=== PATIENT | male | born 1960 | race Caucasian/White ===

== ENCOUNTER 2021-12-14 06:10 | Day surgery (SDC) | payer OTHER ==
[2021-12-12 10:51] VITALS: BMI 28.2
[~2021-12-14 06:10] MED LIST: LACTATED RINGERS 1,000 ML IV SCH
[2021-12-14 06:40] VITALS: TEMP 98.1
[2021-12-14 06:52] LABS: Glucose,Whole Blood 134 mg/dL (75-99)
[2021-12-14] MEDS ORDERED: LIDOCAINE 1% INJ 10MG/ML (20 ML MDV) ONE (07:26)
[2021-12-14] MEDS ORDERED: PROPOFOL 10 MG/ML 20 ML VIAL IV ONE (07:26)
--- NOTE | 2021-12-14 07:44 | P.PCN ---
Date of Procedure: 12/14/21 Procedure(s) Performed: BRIEF HISTORY: Patient is a 61-year-old pleasant white male scheduled for an elective colonoscopy as a part of screening for colorectal neoplasia. His last colonoscopy was 10 years ago. PROCEDURE PERFORMED: Colonoscopy. PREOPERATIVE DIAGNOSIS: Screening for colon cancer. IV sedation per Anesthesia. PROCEDURE: After informed consent was obtained, the patient, was brought into the endoscopy unit. IV sedation was administered by Anesthesia under continuous monitoring. Digital rectal examination was normal. Initially the Olympus CF-160 flexible video colonoscope was then inserted in the rectum, gradually advanced into the cecum without any difficulty. Careful examination was performed as the scope was gradually being withdrawn. Ileocecal valve and the appendiceal orifice were visualized and appeared normal. Prep was excellent. Mucosa of the cecum, ascending colon, transverse colon, descending colon, sigmoid colon, and rectum appeared normal. Scattered sigmoid diverticulosis. Retroflexion was performed in the rectum and no lesions were seen. The patient tolerated the procedure well. IMPRESSION: Normal-appearing colon from rectum to cecum with no evidence of colorectal neoplasia . Scattered sigmoid diverticulosis. RECOMMENDATIONS: Findings of this examination were discussed with the patient as well as his family. He was advised to have a repeat screening colonoscopy in 10 years..
[2021-12-14 08:05] VITALS: BP 108/69; PULSE 71; RESP 18
== END 2021-12-14 08:21 | disposition home or self-care (01) ==
LOC: ORWHC2ENDO 06:10
PROVIDERS: ATTEND Internal Medicine Gastroenterology
DX: Z12.11 Encounter for screening for malignant neoplasm of colon (principal); K57.30 Diverticulosis of large intestine without perforation or abscess without bleeding; I10 Essential (primary) hypertension; F17.200 Nicotine dependence, unspecified, uncomplicated; E11.9 Type 2 diabetes mellitus without complications; K21.9 Gastro-esophageal reflux disease without esophagitis; Z79.84 Long term (current) use of oral hypoglycemic drugs; Z79.891 Long term (current) use of opiate analgesic; Z79.899 Other long term (current) drug therapy
CPT/HCPCS: J2001; J2704; G0121

== ENCOUNTER → 2023-02-10 | Outpatient (CLI) | payer OTHER ==
--- NOTE | 2023-02-10 21:47 | MR ---
EXAMINATION TYPE: MR cspine/lspine wo con DATE OF EXAM: 02/10/2023 9:38 PM CLINICAL INDICATION:Male, 63 years old with history of Cervical pain; lumbar pain; Low back and Neck pain COMPARISON: 03/23/2016 TECHNIQUE: Multi planar, multi sequence imaging was performed utilizing: T1-weighted, T2-weighted, a nd turbo inversion recovery imaging of the cervical and lumbar spine. MR contrast: IV Contrast: , None. FINDINGS: CERVICAL: Alignment: The cervical vertebral bodies have preserved heights. Straightening of the cervical alignm ent. Bones: Bone signal is within normal limits. Cord: The spinal cord is unremarkable with regards to their signal intensity and morphology. Discs: Multilevel disc desiccation is present. C2-C3: No significant disc pathology. The spinal canal is patent. No neural foraminal stenosis. C3-C4: A disc osteophyte complex is present with mild spinal canal stenosis. Bilateral facet and unc overtebral joint arthropathy are present with moderate left and mild right neural foraminal stenosis. C4-C5: A disc osteophyte complex is present with mild spinal canal stenosis. Bilateral facet and unc overtebral joint arthropathy are present with moderate bilateral neural foraminal stenosis. C5-C6: A disc osteophyte complex is present with moderate to severe spinal canal stenosis. Bilateral facet and uncovertebral joint arthropathy are present with moderate to severe bilateral neural josefina inal stenosis. C6-C7: No significant disc pathology. The spinal canal is patent. Bilateral facet and uncovertebral joint arthropathy are present with moderate mild left neural foraminal stenosis. C7-T1: No significant disc pathology. The spinal canal is patent. No neural foraminal stenosis. Other: None. LUMBAR: Alignment: The lumbar vertebral bodies have preserved heights and straightening of the alignment. Cord: The conus medullaris and the distal spinal cord appear unremarkable with regards to their signa l intensity and morphology. Bones/Discs: Spondylosis within the lumbar spine. 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 There is some bony edema and adjoining endplates of L3-L4 and L4-L5. No evidence for fr acture. T12-L1: No evidence of significant spinal canal stenosis or neural foraminal stenosis. L1-L2: No evidence of significant spinal canal stenosis or neural foraminal stenosis. L2-L3: No evidence of significant spinal canal stenosis or neural foraminal stenosis. L3-L4: Disc bulge and facet joint arthropathy result in mild spinal canal and moderate to severe righ t and moderate left bilateral neural foraminal stenosis. L4-L5: Disc bulge and facet joint arthropathy result in mild to moderate spinal canal and severe left and [id number] right bilateral neural foraminal stenosis. L5-S1: The disc is rounded posterior morphology without significant spinal canal stenosis. Facet join t arthropathy with severe bilateral neural foraminal stenosis. Other findings: Right renal cyst IMPRESSION: 1. Degeneration changes worse within the cervical spine at C5-C6 with moderate to severe spinal umang l and bilateral neural foraminal stenosis. 2. Degeneration changes throughout the lumbar spine worse at L3-L4 through L5-S1 with varying degree s of moderate and moderate to severe and severe neural foraminal stenosis as described above.
== END | disposition home or self-care (01) ==
LOC: RADMRIMAIN 18:40
PROVIDERS: ATTEND Nurse Practitioner Family
DX: M47.816 Spondylosis without myelopathy or radiculopathy, lumbar region (principal); M47.812 Spondylosis without myelopathy or radiculopathy, cervical region; M47.817 Spondylosis without myelopathy or radiculopathy, lumbosacral region; M99.73 Connective tissue and disc stenosis of intervertebral foramina of lumbar region
CPT/HCPCS: 72141; 72148

== ENCOUNTER → 2023-12-18 | Outpatient (CLI) | payer OTHER ==
[2023-12-18 13:57] VITALS: BP 142/72; PULSE 97; RESP 15; TEMP 98.4
--- NOTE | 2023-12-18 15:09 | P.PAINPG ---
PQRS Measure Charge Sheet Comment: HISTORY OF PRESENT ILLNESS: A 63 yr old male as a referral from the [facility] presents today w severe and chronic LBP > 1 yr secondary to DDD, spondylosis and facet arthropathy without myelopathy for evaluation. Pt states pain level is provoked at 7 /10 in intensity, constant, localized in the lower lumbar spine, predominantly axial, achy in character w occasional shooting pain towards the BLEs. Pain is provoked by standing/ sitting for periods > 20 min. Pain is alleviated by PT x 6 wks (shoulder) which he is currently in, heat, ice, medications ([place] 7.5/325mg #60, Bupropion patches), repositioning and rest . Oswestry axial pain score at 17. PMH: OA, Asthma, NIDDM II, HTN, Hyperlipidemia, Seasonal Allergies, GERD, MDD PSH: R shoulder Arthroscopy SH: Hx of tobacco use, Occasional ETOH use, Cannabis use FH: Non contributory All: See list Meds: See list REVIEW OF ORGAN SYSTEMS: CONSTITUTIONAL: No fevers or chills. No recent weight loss. NEUROLOGICAL: + numbness and tingling along the distal extremities. No seizure disorders or headaches. MUSCULOSKELETAL: + pain PSYCHIATRIC: Denies current depression or suicidal thoughts. Physical Examinations : Constitutional : Cooperative , not in acute distress . Neurologic : Cranial nerve II to XII intact. No focal neurological deficits. Psychiatric : alert & oriented x 3. Matching mood & appropriate affect. Judgment & insight intact. Musculoskeletal : Cervical Spine Motor strength in the deltoid and biceps: Normal right side. Normal Left side Motor strength biceps and the wrist extensors: Normal right side . Normal left side Motor strength in the triceps muscle: Normal right side. Normal left side Deep tendon reflexes: Normal at the biceps. Normal at Brachioradialis. Normal at triceps Vertebral body tenderness to deep palpation over Cervical facet loading test: positive bilaterally Spurling test: positive bilaterally Neck distraction test: positive bilaterally Oziel sign: positive bilaterally Lumbar spine Motor strength lower extremities ,thigh and legs 5/5 Right side , 5/5 Left side Deep tendon reflexes : Normal Knee Jerk. Normal Ankle Jerk Vertebral body tenderness over Hopkins Test positive BL L5-S1 Lumbar facet Loading Test: positive Right / positive Left Range of motion of the lumbar spine Flexion 30 degrees, extension 10 degrees Straight Leg Raise test: Left/ Right positive at < 35 degrees Luciano test: positive right / positive left. Severe tenderness over the Sacroiliac joint on the Right / Left sides Gaenslen test: positive bilaterally Seated flexion test: positive bilaterally. Sacral spine : Severe tenderness over the Sacroiliac joint: right side / left side Range of motion: Flexion of the lumbar spine <60 degrees Range of motion: Extension of the lumbar spine <20 degrees Gaenslen's Test positive Luciano test: positive right side / left side Thigh Thrust Test Sacral Thrust Test Imaging: MRI non contrast of the lumbar spine from 02/10/23 reviewed Assessment/ Plan : Lumbar DDD, Lumbar stenosis, Cervical DDD Recommendation of SATNAM L5-S1 #1. May need a series of injections for opitmal pain relief. Risks, benefits of procedure discussed and patient verbalized understanding. Admits to anti- coagulant use or medical history of diabetes. Protocol for discontinuation/ continuation of medications rosina procedure discussed. Minimal anesthesia provided, if clinically indicated, consisting of Versed and Fentanyl. All questions answered. I have spent greater than 30 minutes on patient care today. Dr Paniagua was available by phone for the evaluation of this patient. The time was used to review the medical records including relevant urine studies and Prescription history (MAPs), review of the available imaging, evaluation and examination of the patient, coordination of care with the medical staff and if applicable referring physicians, as well as creation of the medical record Home Medications: Ambulatory Orders Hydrocodone/Acetaminophen [Hydrocodone/Acetaminophen 7.5-325] 1 each PO Q6HR PRN 12/12/21 Nf-Alogliptin Dose Unk 1 tab PO HS 12/12/21 Nf-Amlodipine Dose Unk 1 tab PO DAILY 12/12/21 Nf-Metformin Dose Unk 1 tab PO BID 12/12/21 Omeprazole 40 mg PO DAILY 12/12/21 Controlled Substance Measures - Controlled Substance Measures Is patient prescribed a controlled substance at discharge?: No
== END ==
LOC: PNWHC3 12:38
PROVIDERS: ATTEND Specialist
DX: M51.36 Other intervertebral disc degeneration, lumbar region (principal); M48.061 Spinal stenosis, lumbar region without neurogenic claudication; M50.30 Other cervical disc degeneration, unspecified cervical region; Z87.891 Personal history of nicotine dependence
CPT/HCPCS: 99211

== ENCOUNTER 2023-12-25 06:07 | Day surgery (SDC) | payer OTHER ==
[2023-12-25 06:49] LABS: Glucose,Whole Blood 130 mg/dL (70-110)
[2023-12-25 07:07] VITALS: TEMP 98.9
[2023-12-25] MEDS ORDERED: IOPAMIDOL M200 10 ML VIAL ONE (07:08)
[2023-12-25] MEDS ORDERED: methylPREDNISolone ACETATE 40 MG/ML 1 ML VIAL ONE (07:08)
--- NOTE | 2023-12-25 07:13 | P.PCN ---
Date of Procedure: 12/25/23 Procedure(s) Performed: PREOPERATIVE DIAGNOSIS: 1- Lumbar Degenerative Disc Diseases 2-Lumbar spondylosis with Facet arthropathy without myelopathy. POSTOPERATIVE DIAGNOSIS: 1-lumbar degenerative disc disease. 2-lumbar spondylosis with facet arthropathy without myelopathy. PROCEDURE 1. Lumbar epidural steroid injection under fluoroscopic guidance at the L5-S1 level. (Fluoroscopy imaging was available in radiology department) 2. Lumbar epidurogram. ANESTHESIA: Lidocaine 1% 3 and then only. EBL: Minimal PROCEDURE INDICATION: The patient with low back pain and radiculitis symptoms unresponsive to conservative treatment. Fluoroscopy was used to optimize visualization of the needle placement and to maximize safety. PROCEDURE DESCRIPTION / TECHNIQUE: The patient was seen and identified in the preoperative area. Risks, benefits, complications including but not limited to infections ,bleeding ,allergic reaction to the medications ,nerve damage and not complete pain releife , and alternatives were discussed with the patient. The patient agreed to proceed with the procedure and signed the consent, and vital signs were stable. Patient was taken to the OR and time out was completed. The patient was placed in the prone position on procedure table and a pillow was placed under the a bdomen to reduce lumbar lordosis. The lumbosacral area was prepped and draped in the usual sterile fashion.ere closely monitored during the procedure. Vital signs was monitered during the entire procedure. Using anterior-posterior fluoroscopy, the L5-S1 interlaminar space was identified and the skin over this site was marked and then infiltrated with 1% lidocaine subcutaneously. Subsequently, a 20-gauge Tuohy epidural needle was inserted and advanced toward the epidural space using the ``Loss of resistance technique and guided by AP and lateral fluoroscopy. The correct needle position in the epidural space was verified with the injection of 2 mL of the water soluble contrast dye Isovue 200 contrast and observing an excellent epidurogram with the epidural spread of the dye, after negative aspiration for blood and CSF and in the absence of paresthesias. Again after negative aspiration, a 5 ml mixture containing 40 mg of Depo-medrol ( Preservetive Free ), and 2 ml of preservative free Normal Saline, and 2 ml of preservative free lidocaine 1% solution was injected and a washout of epidurogram was seen. Needle was withdrawn intact, skin was cleansed, and bandages were applied. COMPLICATIONS: None DISPOSITION / PLANS: The patient was placed in a supine position and transferred to the recovery area in a stable condition for observation. There was no evidence of lower extremity motor or sensory deficit after the procedure. Patient was discharged from the recovery room after meeting discharge criteria. Home discharge instructions were given to the patient by the staff. The patient was reexamined prior to discharge. The patient will schedule a follow up in the clinic in 2-4 weeks.
[2023-12-25 07:46] LABS: Glucose,Whole Blood 146 mg/dL (70-110)
[2023-12-25 07:50] VITALS: BP 117/73; PULSE 88; RESP 16
--- NOTE | 2023-12-25 09:07 | FL ---
EXAMINATION TYPE: FL guided pain mgmt statistic Intraoperative/procedural fluoroscopic services were provided. Total fluoroscopy time is 1.3 seconds with a total of 1 submitted images to PACS. Please se e the operative/procedural note for further details. DAP: [id number] mGym2
== END 2023-12-25 07:46 | disposition home or self-care (01) ==
LOC: ORPAIN 06:07
PROVIDERS: ATTEND Specialist
DX: M51.16 Intervertebral disc disorders with radiculopathy, lumbar region (principal); M47.26 Other spondylosis with radiculopathy, lumbar region; Z88.8 Allergy status to other drugs, medicaments and biological substances; Z79.1 Long term (current) use of non-steroidal anti-inflammatories (NSAID)
CPT/HCPCS: 62323; Q9966; J1010

== ENCOUNTER → 2024-01-15 | Outpatient (CLI) | payer OTHER ==
[2024-01-15 14:08] VITALS: BP 156/82; PULSE 96; RESP 16
--- NOTE | 2024-01-15 14:53 | P.PAINPG ---
PQRS Measure Charge Sheet Comment: HISTORY OF PRESENT ILLNESS: A 63 yr old male presents today w severe and chronic LBP > 1 yr secondary to DDD, spondylosis and facet arthropathy without myelopathy for evaluation s/p SATNAM L5-S1 #1. Pt states he experienced 100 % pain relief x 3 days s/p procedure. Pt states pain level is provoked at 7 /10 in intensity, constant, localized in the lower lumbar spine, predominantly axial, achy in character without shooting pain. Pain is provoked by standing/ sitting for periods > 20 min. Pain is alleviated by PT x 6 wks (shoulder) which he is currently in, heat, ice, medications, repositioning and rest . Oswestry axial pain score at 17. Interventional procedures include SATNAM L5-S1 x1 Medications include [place] 7.5/325mg #60, Bupropion patches, Cannabis use REVIEW OF ORGAN SYSTEMS: CONSTITUTIONAL: No fevers or chills. No recent weight loss. NEUROLOGICAL: + numbness and tingling along the distal extremities. No seizure disorders or headaches. MUSCULOSKELETAL: + pain PSYCHIATRIC: Denies current depression or suicidal thoughts. Physical Examinations : Constitutional : Cooperative , not in acute distress . Neurologic : Cranial nerve II to XII intact. No focal neurological deficits. Psychiatric : alert & oriented x 3. Matching mood & appropriate affect. Judgment & insight intact. Musculoskeletal : Cervical Spine Motor strength in the deltoid and biceps: Normal right side. Normal Left side Motor strength biceps and the wrist extensors: Normal right side . Normal left side Motor strength in the triceps muscle: Normal right side. Normal left side Deep tendon reflexes: Normal at the biceps. Normal at Brachioradialis. Normal at triceps Vertebral body tenderness to deep palpation over Cervical facet loading test: positive bilaterally Spurling test: positive bilaterally Neck distraction test: positive bilaterally Oziel sign: positive bilaterally Lumbar spine Motor strength lower extremities ,thigh and legs 5/5 Right side , 5/5 Left side Deep tendon reflexes : Normal Knee Jerk. Normal Ankle Jerk Vertebral body tenderness over Hopkins Test positive Lumbar facet Loading Test: positive Right / positive Left L4-L5, L5-S1 Range of motion of the lumbar spine Flexion 30 degrees, extension 10 degrees Straight Leg Raise test: Left/ Right positive at < 35 degrees Luciano test: positive right / positive left. Severe tenderness over the Sacroiliac joint on the Right / Left sides Gaenslen test: positive bilaterally Seated flexion test: positive bilaterally. Sacral spine : Severe tenderness over the Sacroiliac joint: right side / left side Range of motion: Flexion of the lumbar spine <60 degrees Range of motion: Extension of the lumbar spine <20 degrees Gaenslen's Test positive Luciano test: positive right side / left side Thigh Thrust Test Sacral Thrust Test Imaging: MRI non contrast of the lumbar spine from 02/10/23 reviewed Assessment/ Plan : Lumbar DDD, Lumbar stenosis, Cervical DDD Recommendation of BL MBB L3-L5 #1. May need a series of injections for optimal pain relief. Risks, benefits of procedure discussed and patient verbalized understanding. Admits to anti- coagulant use or medical history of diabetes. Protocol for discontinuation/ continuation of medications rosina procedure discussed. Minimal anesthesia including Fentanyl and Versed if clinically indicated. All questions answered. I have spent greater than 30 minutes on patient care today. Dr Paniagua was available by phone for the evaluation of this patient. The time was used to review the medical records including relevant urine studies and Prescription history (MAPs), review of the available imaging, evaluation and examination of the patient, coordination of care with the medical staff and if applicable referring physicians, as well as creation of the medical record PQRS Narrative: Hx Alcohol Use (MH) Yes Home Medications: Ambulatory Orders Hydrocodone/Acetaminophen [Hydrocodone/Acetaminophen 7.5-325] 1 each PO Q12HR PRN 12/12/21 Albuterol Inhaler [Ventolin Hfa Inhaler] 1 - 2 puff INHALATION Q6H PRN 12/24/23 Alogliptin Benzoate [Alogliptin] 25 mg PO DAILY 12/24/23 Atorvastatin [Lipitor] 20 mg PO DAILY 12/24/23 DULoxetine HCL [Cymbalta] 60 mg PO DAILY 12/24/23 Fluticasone Nasal [place] [Flonase Nasal [place]] 1 spray EA NOSTRIL DAILY 12/24/23 Ibuprofen [Motrin] 800 mg PO TID PRN 12/24/23 Nicotine Patch 1 patch TOPICAL DIRECTED 12/24/23 Omeprazole 20 mg PO DAILY 12/24/23 amLODIPine 10 mg PO DAILY 12/24/23 lisinopriL [Zestril] 5 mg PO DAILY 12/24/23 metFORMIN HCL [Glucophage] 1,000 mg PO BID 12/24/23 traZODone HCL 150 mg PO HS 12/24/23 Controlled Substance Measures - Controlled Substance Measures Is patient prescribed a controlled substance at discharge?: No
== END ==
LOC: PNWHC3 12:37
PROVIDERS: ATTEND Specialist
DX: M51.37 Other intervertebral disc degeneration, lumbosacral region (principal); M50.30 Other cervical disc degeneration, unspecified cervical region; M48.061 Spinal stenosis, lumbar region without neurogenic claudication; Z88.8 Allergy status to other drugs, medicaments and biological substances
CPT/HCPCS: 99211

== ENCOUNTER 2024-01-30 06:10 | Day surgery (SDC) | payer OTHER ==
[2024-01-28 15:05] VITALS: BMI 27.3
[2024-01-30 06:48] VITALS: TEMP 98.4
[2024-01-30] MEDS: IV FLUID CONTINUATION 1,000 ML IV ONE (06:58)
[2024-01-30] MEDS: LACTATED RINGERS 1,000 ML IV SCH (06:59)
[2024-01-30 07:02] LABS: Glucose,Whole Blood 115 mg/dL (70-110)
[2024-01-30] MEDS ORDERED: MIDAZOLAM 2 MG/2 ML VIAL ONE (07:51)
[2024-01-30] MEDS ORDERED: fentaNYL (PF) 50 MCG/ML 2 ML AMP ONE (07:51)
[2024-01-30] MEDS ORDERED: ROPIVACAINE 5MG/ML 20ML VIAL ONE (07:51)
--- NOTE | 2024-01-30 08:06 | P.PCN ---
Date of Procedure: 01/30/24 Procedure(s) Performed: PREOPERATIVE DIAGNOSIS : 1- Lumbar spondylosis with Facet Arthropathy with out myelopathy . 2- Lumber degenerative disc disease POSTOPERATIVE DIAGNOSIS: 1- Lumbar spondylosis with Facet Arthropathy without myelopathy . 2- Lumber degenerative disc disease PROCEDURE: Diagnostic bilateral L3 , L4 , and L5 medial branch block under fluoroscopy guidance(fluoroscopy images available in the radiology Department ) ( To target the facet joint between Bilateral L4-5 , and L5- S1 )# 1St ANESTHESIA: moderate sedation with intravenous Versed 2 mg and Fentanyl 100 mcg. (Sedation start 07:51 ,ended at 08:04 ) EBL: Minimal COMPLICATION: None PROCEDURE INDICATION: Chronic low back pain secondary to Facet arthropathy unresponsive to conservative treatment. PROCEDURE DESCRIPTION: the patient was seen and identified in the preop holding area , risks and benefits and possible complications of the procedure and alternative were discussed with the patient, and the patient agreed to proceed with the procedure and signed the consent and vital signs monitored during the procedure and fluoroscopy was used to maximize the benefit and accuracy of the needle placement, and sedation was given to decrease patient anxiety, patient was taken to the procedure room and placed in prone position vital signs monitored in the back prepped with chlorhexidine X3 then under strict sterile technique using a right oblique fluoroscopy ,the junction of the transverse process and the superior articulating process of the right L3 , L4 , and L5 vertebra which corresponding to the fluoroscopy image of the eye of the Jered dog on the block side for the medial branches and subsequently , after local infiltration of skin and subcu tissuies with Ropivacaine 0.5 % , one mL at each level ,then 22-gauge Quincke-type needles , 3 needle was used , each one of them placed at the junction of the base of the transverse process and the superior articular process at the appropriate level, and the needle was advanced until the periosteum contacted, needle placement confirmed with AP oblique and lateral view and after appropriate needle placement confirmed, and after negative aspiration for heme and CSF and there was no paresthesia 1-1/2 mL of Ropivacaine 0.5% , then half mL injected at each level after negative aspiration the needle subsequently removed and the same procedure repeated for the left side at left side at L3 , L4 and L5 levels. At the end of the procedure and the needles removed and a bandage applied after the skin was cleaned the cleaning solution patient taken to recovery room in stable condition and monitors in the recovery room for 20-30 minutes and discharged home in stable condition after discharge criteria met and patient will follow up with the pain clinic in 2-4 weeks
[2024-01-30] MEDS: IV FLUID CONTINUATION 400 ML IV ONE (08:11)
[2024-01-30 08:50] VITALS: BP 128/78; PULSE 87; RESP 18
--- NOTE | 2024-01-30 09:17 | FL ---
EXAMINATION TYPE: FL guided pain mgmt statistic Intraoperative/procedural fluoroscopic services were provided. Total fluoroscopy time is 13 point seconds with a total of 5 submitted images to PACS. Plea se see the operative/procedural note for further details. DAP: 0.0298 mGym2
== END 2024-01-30 08:51 | disposition home or self-care (01) ==
LOC: ORPAIN 06:10
PROVIDERS: ATTEND Specialist
DX: M47.816 Spondylosis without myelopathy or radiculopathy, lumbar region (principal); G89.29 Other chronic pain; M51.36 Other intervertebral disc degeneration, lumbar region; E11.9 Type 2 diabetes mellitus without complications; Z79.899 Other long term (current) drug therapy
CPT/HCPCS: 64493; 64494 ×2; J2250; J3010; J2795; 99152

== ENCOUNTER → 2024-03-04 | Outpatient (CLI) | payer OTHER ==
[2024-03-04 11:20] VITALS: BP 138/79; PULSE 100; RESP 16
--- NOTE | 2024-03-04 14:55 | P.PAINPG ---
PQRS Measure Charge Sheet Comment: HISTORY OF PRESENT ILLNESS: A 63 yr old male presents today w severe and chronic LBP > 1 yr secondary to DDD, spondylosis and facet arthropathy without myelopathy for evaluation s/p BL MBB L4-L5/ L5-S1 #1. Pt states he experienced 80 % pain relief x 4 hrs s/p procedure. Pt states pain level is provoked at 7 /10 in intensity, constant, localized in the lower lumbar spine, predominantly axial, achy in character without shooting pain. Pain is provoked by standing/ sitting for periods > 20 min. Pain is alleviated by PT x 6 wks (shoulder) which he is currently in, heat, ice, medications, repositioning and rest . Oswestry axial pain score at 17. Interventional procedures include SATNAM L5-S1 x1, BL MBB L4-L5/ L5-S1 x1 Medications include [place] 7.5/325mg #60, Bupropion patches, Cannabis use REVIEW OF ORGAN SYSTEMS: CONSTITUTIONAL: No fevers or chills. No recent weight loss. NEUROLOGICAL: + numbness and tingling along the distal extremities. No seizure disorders or headaches. MUSCULOSKELETAL: + pain PSYCHIATRIC: Denies current depression or suicidal thoughts. Physical Examinations : Constitutional : Cooperative , not in acute distress . Neurologic : Cranial nerve II to XII intact. No focal neurological deficits. Psychiatric : alert & oriented x 3. Matching mood & appropriate affect. Judgment & insight intact. Musculoskeletal : Cervical Spine Motor strength in the deltoid and biceps: Normal right side. Normal Left side Motor strength biceps and the wrist extensors: Normal right side . Normal left side Motor strength in the triceps muscle: Normal right side. Normal left side Deep tendon reflexes: Normal at the biceps. Normal at Brachioradialis. Normal at triceps Vertebral body tenderness to deep palpation over Cervical facet loading test: positive bilaterally Spurling test: positive bilaterally Neck distraction test: positive bilaterally Oziel sign: positive bilaterally Lumbar spine Motor strength lower extremities ,thigh and legs 5/5 Right side , 5/5 Left side Deep tendon reflexes : Normal Knee Jerk. Normal Ankle Jerk Vertebral body tenderness over Hopkins Test positive Lumbar facet Loading Test: positive Right / positive Left L4-L5, L5-S1 Range of motion of the lumbar spine Flexion 30 degrees, extension 10 degrees Straight Leg Raise test: Left/ Right positive at < 35 degrees Luciano test: positive right / positive left. Severe tenderness over the Sacroiliac joint on the Right / Left sides Gaenslen test: positive bilaterally Seated flexion test: positive bilaterally. Sacral spine : Severe tenderness over the Sacroiliac joint: right side / left side Range of motion: Flexion of the lumbar spine <60 degrees Range of motion: Extension of the lumbar spine <20 degrees Gaenslen's Test positive Luciano test: positive right side / left side Thigh Thrust Test Sacral Thrust Test Imaging: MRI non contrast of the lumbar spine from 02/10/23 reviewed Assessment/ Plan : Lumbar DDD, Lumbar stenosis, Cervical DDD Recommendation of BL MBB L4-L5/ L5-S1 #2. May need a series of injections for optimal pain relief. Risks, benefits of procedure discussed and patient verbalized understanding. Admits to anti- coagulant use or medical history of diabetes. Protocol for discontinuation/ continuation of medications rosina procedure discussed. Minimal anesthesia including Fentanyl and Versed if clinica lly indicated. All questions answered. I have spent greater than 30 minutes on patient care today. Dr Paniagua was available by phone for the evaluation of this patient. The time was used to review the medical records including relevant urine studies and Prescription history (MAPs), review of the available imaging, evaluation and examination of the patient, coordination of care with the medical staff and if applicable referring physicians, as well as creation of the medical record PQRS Narrative: Hx Alcohol Use (MH) Yes Home Medications: Ambulatory Orders Hydrocodone/Acetaminophen [Hydrocodone/Acetaminophen 7.5-325] 1 each PO Q12HR PRN 12/12/21 Albuterol Inhaler [Ventolin Hfa Inhaler] 1 - 2 puff INHALATION Q6H PRN 12/24/23 Alogliptin Benzoate [Alogliptin] 25 mg PO DAILY 12/24/23 Atorvastatin [Lipitor] 20 mg PO DAILY 12/24/23 DULoxetine HCL [Cymbalta] 60 mg PO DAILY 12/24/23 Fluticasone Nasal [place] [Flonase Nasal [place]] 1 spray EA NOSTRIL DAILY 12/24/23 Ibuprofen [Motrin] 800 mg PO TID PRN 12/24/23 Omeprazole 20 mg PO DAILY 12/24/23 amLODIPine 10 mg PO DAILY 12/24/23 lisinopriL [Zestril] 5 mg PO DAILY 12/24/23 metFORMIN HCL [Glucophage] 1,000 mg PO BID 12/24/23 traZODone HCL 150 mg PO HS 12/24/23 Controlled Substance Measures - Controlled Substance Measures Is patient prescribed a controlled substance at discharge?: No
== END ==
LOC: PNWHC3 10:57
PROVIDERS: ATTEND Specialist
DX: M51.37 Other intervertebral disc degeneration, lumbosacral region (principal); M50.30 Other cervical disc degeneration, unspecified cervical region; M48.061 Spinal stenosis, lumbar region without neurogenic claudication; Z88.8 Allergy status to other drugs, medicaments and biological substances
CPT/HCPCS: 99211

== ENCOUNTER 2024-03-19 08:21 | Day surgery (SDC) | payer OTHER ==
[2024-03-19 09:09] VITALS: TEMP 98.4
[2024-03-19] MEDS: LACTATED RINGERS 1,000 ML IV SCH (09:09)
[2024-03-19] MEDS: IV FLUID CONTINUATION 1,000 ML IV ONE ×3 (09:09→10:45)
[2024-03-19] MEDS: LIDOCAINE 1% (10MG/ML) FOR IV START INTRADERMA ONE (09:09)
[2024-03-19 09:20] LABS: Glucose,Whole Blood 131 mg/dL (70-110)
[2024-03-19] MEDS ORDERED: fentaNYL (PF) 50 MCG/ML 2 ML AMP ONE (10:00)
[2024-03-19] MEDS ORDERED: MIDAZOLAM 2 MG/2 ML VIAL ONE (10:00)
[2024-03-19] MEDS ORDERED: ROPIVACAINE 5MG/ML 20ML VIAL ONE (10:00)
--- NOTE | 2024-03-19 10:13 | P.PCN ---
Date of Procedure: 03/19/24 Surgeon: Carlos Galvez Pathology: none sent Condition: stable Disposition: PACU Description of Procedure: PREOPERATIVE DIAGNOSIS : 1- Lumbar spondylosis with Facet Arthropathy without myelopathy . 2- Lumber degenerative disc disease POSTOPERATIVE DIAGNOSIS: 1- Lumbar spondylosis with Facet Arthropathy without myelopathy . 2- Lumber degenerative disc disease PROCEDURE: Diagnostic bilateral L4 -5 , and L5-S1 medial branch block under fluoroscopy Physician: Carlos Galvez MD ANESTHESIA: Local with 1% lidocaine;and IV moderate conscious sedation with Versed 2 mg and fentanyl 50 g Sedation time: 2100-1724 EBL: Negligible COMPLICATION: None. PROCEDURE INDICATION: Chronic low back pain secondary to Facet arthropathy unresponsive to conservative treatment. PROCEDURE DESCRIPTION: the patient was seen and identified in the preop holding area , risks and benefits and possible complications of the procedure and alternatives were discussed with the patient, and the patient agreed to proceed with the procedure and signed the consent. IV was started and vital signs monitored during the procedure and fluoroscopy was used to maximize the benefit and accuracy of the needle placement, sedation was given to decrease patient anxiety, patient was taken to the procedure room and placed in prone position vital signs monitored. The patient was brought into the procedure room and placed in prone position. S kin was prepped with Chloraprep and draped in a sterile manner. Lidocaine 1% was used to numb the skin up at the target points that were chosen as follows: at the L5-S1 level which corresponds to the dorsal ramus of L5 the target points were at the superior medial aspect of the sacral ala on each side of the spine on the AP view of fluoroscopy, and for the L3 and L4 medial branches the target points were the connection between the transverse process and the superior articular process of L4 and L5 respectively on the oblique views of fluoroscopy. I used 22-gauge 3-1/2 inch Quincke spinal needles for this procedure and after contacting bone at the target points mentioned above I injected 1 mL of Ropivacaine 0.5% PF in each needle . Patient tolerated procedure well. At the end of the procedure the needles removed and a bandage applied after the skin was cleaned the cleaning solution. patient was then taken to the recovery room in stable condition and monitored in the recovery room for 20-30 minutes and discharged home in stable condition after discharge criteria met . A copy of the needle placement picture was saved to the C-arm machine.
--- NOTE | 2024-03-19 10:23 | FL ---
Fluoroscopy History: FACET BLOCK JAN LUM BILATERAL LUMBAR FACET BLOCK DR REIS FL TIME- 11 SEC DAP- [id number]
[2024-03-19 10:26] VITALS: RESP 20
[2024-03-19 10:54] VITALS: BP 111/71; PULSE 85
--- NOTE | 2024-03-19 11:36 | P.PN ---
Progress Note - Text Progress Note Date: 03/19/24 We were told by the hospital staff that the patient drove himself home despite our recommendations not to do that. the patient had his father with him however he was the one who drove the car home. The patient would have to have his next procedure done under local anesthesia only.
== END 2024-03-19 10:55 | disposition home or self-care (01) ==
LOC: ORPAIN 08:21
PROVIDERS: ATTEND Anesthesiology
DX: M47.816 Spondylosis without myelopathy or radiculopathy, lumbar region (principal); M51.36 Other intervertebral disc degeneration, lumbar region; G89.29 Other chronic pain; E11.9 Type 2 diabetes mellitus without complications
CPT/HCPCS: 64493; 64494 ×2; 99152; J2250; J3010; J2795

== ENCOUNTER → 2024-04-08 | Outpatient (CLI) | payer OTHER | LOC: PNWHC3 11:00 | PROVIDERS: ATTEND Specialist | DX: M47.816 Spondylosis without myelopathy or radiculopathy, lumbar region | CPT/HCPCS: 99211 ==

== ENCOUNTER 2024-05-06 06:01 | Day surgery (SDC) | payer OTHER ==
[2024-05-06 06:38] VITALS: RESP 18; TEMP 97.6
[2024-05-06 06:47] LABS: Glucose,Whole Blood 139 mg/dL (70-110)
[2024-05-06] MEDS ORDERED: methylPREDNISolone ACETATE 40 MG/ML 1 ML VIAL ONE (07:10)
[2024-05-06] MEDS ORDERED: ROPIVACAINE 5MG/ML 20ML VIAL ONE (07:10)
--- NOTE | 2024-05-06 07:45 | P.PCN ---
Date of Procedure: 05/06/24 Procedure(s) Performed: PREOPERATIVE DIAGNOSIS: 1-Lumbar Spondylosis with Facet Arthropathy without myelopathy. 2- Lumber degenerative disc disease. POSTOPERATIVE DIAGNOSIS: 1- Lumbar Spondylosis with Facet Arthropathy without myelopathy. 2- Lumber degenerative disc disease. PROCEDURES : Bilateral Radiofrequency thermocoagulation, L3 , L4 , L5 medial branch, with fluoroscopic guidance (fluoroscopy images in radiology dept) ( to denervate the facet joint at bilateral L4-5 ,and L5-S1 levels ). ANESTHESIA: only local infiltration with Ropivacaine 0.5 % 6 ml . EBL: Minimal PROCEDURE INDICATION: The patient with low back pain secondary to lumbar facet arthropathy who had more than 50% relief of her pain with previous diagnostic lumbar medial branch block with bupivacaine. PROCEDURE DESCRIPTION / TECHNIQUE: The patient was seen and identified in the preoperative area. Risks, benefits, complications, including but not limited to risk of infection ,bleeding , allergic reactions to the medications and no complete pain releife , and alternatives were discussed with the patient, the patient agreed to proceed with the procedure and signed the consent. Vital signs remained stable throughout the procedure. Patient was taken to the OR and time out was completed. The patient was placed in the prone position on the procedure table. The lumber area was prepped and draped in the usual sterile fashion. . Vital signs were closely monitored during the procedure . Using AP and then oblique fluoroscopy, the ``eye of the Jered dog corresponding to the connection between the superior and transverse articular processes of right L3, L4, and L5 were identified, marked, and localized with 0.5 % Ropivacaine. Subsequently, a 18 -se radiofrequency (Venom )cannula with a 10-mm active tip was advanced guided by fluoroscopy to each of the``eyes of the Jered dog at right L3, L4, and L5. Each site then underwent sensory testing at 50 Hz and 0 to 1 volt and motor testing at 2.5 Hz and 0 to 3 volt with local stimulation, but no radicular symptoms down the legs. Thereafter each sites underwent radiofrequency thermocoagulation at 80 degrees celsius for 90 seconds after injecting 0.5 ml of PF Ropivacaine 1ml, then after the thermocoagulation done , 1 ml of the block solution containing Depo-Medrol 20 mg and 3 ml of Ropivacaine 0.5% was injected at the right L3 , L4 , and L5 , levels after negative aspiration of CSF and blood and with no paresthesias. Cannulas were retracted until the needle is out. The same procedure was repeated at the level of Left L3, L4, and L5 levels. At the end of the procedure, the skin was cleansed and bandages were applied. COMPLICATIONS: No acute complications. DISPOSITION / PLANS: The patient was placed in a supine position and transferred to the recovery area in a stable condition for observation and was discharged from the recovery room after meeting discharge criteria. Home discharge instructions given to the patient by the staff. The patient was reexamined prior to discharge. The patient will schedule a follow up in the clinic in 2-4 weeks. note=ptient had no car pick up driver with him for this reason ,we did not give sedation.
--- NOTE | 2024-05-06 07:51 | FL ---
Fluoroscopy History: PAIN bilateral lumbar RFA, with DR. Matt FL TIME 16.7 SEC DAP [id number] DVH.
[2024-05-06 08:05] VITALS: BP 136/75; PULSE 90
== END 2024-05-06 08:12 | disposition home or self-care (01) ==
LOC: ORPAIN 06:01
PROVIDERS: ATTEND Specialist
DX: M47.816 Spondylosis without myelopathy or radiculopathy, lumbar region (principal); M51.36 Other intervertebral disc degeneration, lumbar region; Z79.899 Other long term (current) drug therapy; Z79.82 Long term (current) use of aspirin; Z88.8 Allergy status to other drugs, medicaments and biological substances
CPT/HCPCS: 64635; 64636 ×2; J2795; J1010

== ENCOUNTER → 2024-05-20 | Outpatient (CLI) | payer OTHER ==
[2024-05-20 12:43] VITALS: BP 130/90; PULSE 81; RESP 16
--- NOTE | 2024-05-20 14:45 | P.PAINPG ---
Objective - Vital Signs Vital signs: Vital Signs Temp Pulse 81 05/20/24 12:42 Resp 16 05/20/24 12:42 BP 130/90 05/20/24 12:42 Pulse Ox 91 L 05/20/24 12:42 FiO2 PQRS Measure Charge Sheet Mode of Arrival: Ambulatory Comment: HISTORY OF PRESENT ILLNESS: A 63 yr old male presents today w severe and chronic LBP > 1 yr secondary to radiculopathy, spondylosis and facet arthropathy without myelopathy for evaluation s/p BL RFA L4-L5/ L5-S1 . Pt states he experienced 0 % pain relief x s/p procedure. Pt states pain level is provoked at 7-8 /10 in intensity, constant, localized in the lower lumbar spine, predominantly axial, achy in character without shooting pain. Pain is provoked by standing/ sitting for periods > 20 min. Pain is alleviated by PT x 6 wks (cervical, shoulder) which he is currently in, heat, ice, medications, repositioning and rest . Interventional procedures include SATNAM L5-S1 x1, BL RFA L4-L5/ L5-S1 (Mar 2024) Medications include [place] 7.5/325mg #60, Bupropion patches, Cannabis use REVIEW OF ORGAN SYSTEMS: CONSTITUTIONAL: No fevers or chills. No recent weight loss. NEUROLOGICAL: + numbness and tingling along the distal extremities. No seizure disorders or headaches. MUSCULOSKELETAL: + pain PSYCHIATRIC: Denies current depression or suicidal thoughts. Physical Examinations : Constitutional : Cooperative , not in acute distress . Neurologic : Cranial nerve II to XII intact. No focal neurological deficits. Psychiatric : alert & oriented x 3. Matching mood & appropriate affect. Judgment & insight intact. Musculoskeletal : Cervical Spine Motor strength in the deltoid and biceps: Normal right side. Normal Left side Motor strength biceps and the wrist extensors: Normal right side . Normal left side Motor strength in the triceps muscle: Normal right side. Normal left side Deep tendon reflexes: Normal at the biceps. Normal at Brachioradialis. Normal at triceps Vertebral body tenderness to deep palpation over Cervical facet loading test: positive bilaterally Spurling test: positive bilaterally Neck distraction test: positive bilaterally Oziel sign: positive bilaterally Lumbar spine Motor strength lower extremities ,thigh and legs 5/5 Right side , 5/5 Left side Deep tendon reflexes : Normal Knee Jerk. Normal Ankle Jerk Vertebral body tenderness over Hopkins Test positive Lumbar facet Loading Test: positive Right / positive Left L4-L5, L5-S1 Range of motion of the lumbar spine Flexion 30 degrees, extension 10 degrees Straight Leg Raise test: Left/ Right positive at < 35 degrees Luciano test: positive right / positive left. Severe tenderness over the Sacroiliac joint on the Right / Left sides Gaenslen test: positive bilaterally Seated flexion test: positive bilaterally. Sacral spine : Severe tenderness over the Sacroiliac joint: right side / left side Range of motion: Flexion of the lumbar spine <60 degrees Range of motion: Extension of the lumbar spine <20 degrees Gaenslen's Test positive Luciano test: positive right side / left side Thigh Thrust Test Sacral Thrust Test Imaging: MRI non contrast of the lumbar spine from 02/10/23 reviewed Assessment/ Plan : Lumbar radiculopathy w stenosis, Cervical radiculopathy Recommendation of follow up w Dr Barfield, orthopedic surgeon, to explore additional treatment options. All questions answered. I have spent greater than 30 minutes on patient care today. Dr Paniagua was available by phone for the evaluation of this patient. The time was used to review the medical records including relevant urine studies and Prescription history (MAPs), review of the available imaging, evaluation and examination of the patient, coordination of care with the medical staff and if applicable referring physicians, as well as creation of the medical record - Pain Location Lower Back Pharmacological Interventions: Epidural PQRS Narrative: Blood Pressure 130/90 Pain Intensity [Lower Back] 8 Scale Used Numeric (1 - 10) Hx Alcohol Use (MH) Yes Home Medications: Ambulatory Orders Albuterol Inhaler [Ventolin Hfa Inhaler] 1 - 2 puff INHALATION Q6H PRN 12/24/23 Alogliptin Benzoate [Alogliptin] 25 mg PO DAILY 12/24/23 Atorvastatin [Lipitor] 20 mg PO DAILY 12/24/23 DULoxetine HCL [Cymbalta] 60 mg PO HS 12/24/23 Fluticasone Nasal [place] [Flonase Nasal [place]] 1 spray EA NOSTRIL DAILY PRN 12/24/23 Ibuprofen [Motrin] 800 mg PO TID PRN 12/24/23 Omeprazole 20 mg PO DAILY 12/24/23 amLODIPine 10 mg PO DAILY 12/24/23 lisinopriL [Zestril] 5 mg PO DAILY 12/24/23 metFORMIN HCL [Glucophage] 1,000 mg PO BID 12/24/23 traZODone HCL 150 mg PO HS 12/24/23 Fluticasone Propion/Salmeterol [[place] 250-50 Inhub] 1 inhalation PO BID 03/18/24 HYDROcodone/APAP 10-325MG [[place] 10-325] 1 tab PO TID PRN 03/18/24 Controlled Substance Measures - Controlled Substance Measures Is patient prescribed a controlled substance at discharge?: No
== END ==
LOC: PNWHC3 12:14
PROVIDERS: ATTEND Specialist
DX: M47.816 Spondylosis without myelopathy or radiculopathy, lumbar region
CPT/HCPCS: 99211

== ENCOUNTER 2024-11-19 09:04 | Day surgery (SDC) | payer OTHER ==
[2024-11-18 12:59] VITALS: BMI 29.0
[2024-11-19 09:34] VITALS: RESP 16; TEMP 98.2
[2024-11-19] MEDS: IV FLUID CONTINUATION 1,000 ML IV ONE (09:34)
[2024-11-19] MEDS: LACTATED RINGERS 1,000 ML IV SCH (09:42)
[2024-11-19 09:43] LABS: Glucose,Whole Blood 142 mg/dL (70-110)
[2024-11-19] MEDS ORDERED: LIDOCAINE 2% (PF) 20 MG/ML 5 ML VIAL ONE (09:54)
[2024-11-19] MEDS ORDERED: PROPOFOL 10 MG/ML 20 ML VIAL IV ONE (09:54)
--- NOTE | 2024-11-19 10:08 | P.PCN ---
Date of Procedure: 11/19/24 Procedure(s) Performed: BRIEF HISTORY: Patient is a 64-year-old, pleasant, white male scheduled for an upper endoscopy as a part evaluation of longstanding history of GERD of several years duration. He is on omeprazole 20 mg daily for more than 10 years... PROCEDURE PERFORMED: Esophagogastroduodenoscopy with biopsy PREOPERATIVE DIAGNOSIS: Longstanding history of GERD. IV sedation per anesthesia. PROCEDURE: After informed consent was obtained, the patient was brought into the endoscopy unit. IV sedation was administered by Anesthesia under continuous monitoring. Initially the Olympus GIF-140 video endoscope was inserted into the mouth. Esophagus intubated without any difficulty. It was gradually advanced into the stomach and duodenum and carefully examined. The bulb and the second part of the duodenum appeared normal. The scope at this time was withdrawn to the stomach, adequately insufflated with air, and upon careful examination, mucosa of the antrum, body, cardia and the fundus appeared normal. The scope was then withdrawn into the esophagus. Small hiatal hernia noted. The GE junction was located at 39 cm from the incisors. There was a 1 cm tongue of Berrios's appearing mucosa proximal to the GE junction that was biopsied. The rest of the esophagus appeared normal. There were no erosions or ulcerations seen and the patient tolerated the procedure well. IMPRESSION: 1. 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 2. Small hiatal hernia. RECOMMENDATIONS: The findings of this examination were discussed with the patient as well as his family. He was advised to follow-up with the biopsy results. If the biopsy confirms the presence of Berrios's esophagus he can have repeat upper endoscopy every 3 years. In the meantime he will continue with omeprazole 20 mg daily and follow antireflux measures..
[2024-11-19] MEDS: LACTATED RINGERS 1,000 ML IV ONE (10:10)
[2024-11-19 10:28] VITALS: BP 128/76; PULSE 92
== END 2024-11-19 10:40 | disposition home or self-care (01) ==
LOC: ORWHC2ENDO 09:04
PROVIDERS: ATTEND Internal Medicine Gastroenterology
DX: K22.70 Barrett's esophagus without dysplasia (principal); K44.9 Diaphragmatic hernia without obstruction or gangrene; K21.9 Gastro-esophageal reflux disease without esophagitis; I10 Essential (primary) hypertension; E78.5 Hyperlipidemia, unspecified; J44.89 Other specified chronic obstructive pulmonary disease; G47.33 Obstructive sleep apnea (adult) (pediatric); F41.9 Anxiety disorder, unspecified; F32.A Depression, unspecified; Z87.891 Personal history of nicotine dependence; Z98.890 Other specified postprocedural states; Z88.8 Allergy status to other drugs, medicaments and biological substances; Z79.51 Long term (current) use of inhaled steroids; Z79.899 Other long term (current) drug therapy
CPT/HCPCS: 88305; 43239; J2704; J2003